=== PATIENT | male | born 1975 | race Caucasian/White ===

== ENCOUNTER → 2017-07-19 | Outpatient (CLI) | payer BC, OTHER ==
[~2017-07-19] MED LIST: DICY20TA10 PO; IBUP-1050 PO; OXYC-57 PO; SERT-234 PO; SERT50TA PO; TAMS0.4C38 PO
== END | disposition home or self-care (01) ==
LOC: C.LABSPEC 17:03
PROVIDERS: ATTEND Urology
DX: R31.0 Gross hematuria (principal); N45.1 Epididymitis; R30.0 Dysuria

== ENCOUNTER → 2017-08-15 | Outpatient (CLI) | payer BC, OTHER ==
[2017-08-15 15:38] LABS: BASO % 0.7 %; BASO ABS # 0.04 K/uL (0-0.2); COMPLETE YES; EOS % 4.7 %; IG% 0.3 %; LYMPH % 26.6 %; LYMPH ABS # 1.54 K/uL (1.2-3.4); MEAN CELL VOLUME 79.8 fL (80-100); MEAN CORPUSCULAR HEMOGLOBIN 27.8 pg (25-34); MEAN CORPUSCULAR HGB CONC 34.9 g/dl (32-36); MEAN PLATELET VOLUME 8.5 fL (7.4-10.4); MONO % 7.3 %; NEUT % 60.4 %; PLATELET COUNT 216 K/uL (130-400); RED BLOOD COUNT 5.39 M/uL (4.7-6.1); WHITE BLOOD COUNT 5.78 K/uL (4.8-10.8)
[2017-08-15 15:53] LABS: BLOOD UREA NITROGEN 15 mg/dl (7-18); BUN/CREATININE RATIO 18.2 (10-20); CARBON DIOXIDE 26 mmol/L (21-32); CHLORIDE 108 mmol/L (98-107); CREATININE 0.82 mg/dl (0.60-1.40); GLUCOSE 101 mg/dl (70-99); PHOSPHORUS 2.3 mg/dl (2.5-4.9); POTASSIUM 3.9 mmol/L (3.5-5.1); SODIUM 141 mmol/L (136-145)
[2017-08-15 15:56] LABS: URINE APPEARANCE CLEAR (CLEAR); URINE BILIRUBIN NEG (NEG); URINE COLOR YELLOW; URINE EPITHELIAL CELL AUTO 0-5 /lpf (0-5); URINE NITRITE NEG (NEG); URINE PH 5.5 (4.5-7.5); URINE SPECIFIC GRAVITY 1.025 (1.000-1.030); UROBILINOGEN NEG (NEG); ZZUR CULT IF INDIC CLEAN CATCH NO
[2017-08-15 16:01] LABS: MANUAL MICROSCOPIC REQUIRED? NO; REVIEW REQ? NO
[2017-08-15 16:05] LABS: URINE PROTIEN/CREAT RATIO 0.1 (0-0.2); URINE TOTAL PROTEIN 16.7 mg/dl (0-11.9)
== END | disposition home or self-care (01) ==
LOC: C.LAB1850 14:17
PROVIDERS: ATTEND Internal Medicine Nephrology
DX: R31.0 Gross hematuria (principal)

== ENCOUNTER → 2017-08-21 | Day surgery (SDC) | payer BC, OTHER ==
[2017-08-18 08:43] VITALS: BMI 37.0
[~2017-08-21] VITALS: Ht 180.3 cm; Wt 120.5 kg
[~2017-08-21] MED LIST changes: +ATROPINE SULFATE 0.1 MG/ML 5ML SYR IV PRN; +BUPIVACAINE 0.5 % 5 MG/1 ML MPF 30ML VIAL ONE; +CEFAZOLIN SOD 1 GM VIAL ONE; +DEXAMETHASONE SOD INJ 4 MG/ML VIAL ONE; +EpHEDrine SULFATE 50MG/5ML SYR ONE; +FENTANYL CITRATE INJ 50 MCG/1 ML 2 ML VIAL ONE; +GLYCOPYRROLATE INJ 0.2 MG/ML VIAL ONE; +HYDROmorphone INJ 1 MG/ML SYR ONE; +HYDROmorphone INJ 2 MG/ML SYR/VIAL IV PRN; +KETOROLAC TROMETHAMINE 30 MG/ML VIAL IV. PRN; +KETOROLAC TROMETHAMINE 30 MG/ML VIAL ONE; +LABETALOL HCL IV 5 MG/ML 20ML IV PRN; +LACTATED RINGER'S 1000ML 1,000 ML IV SCH; +LIDOCAINE HCL 2% 2 ML VIAL (20MG/ML) ONE; +MIDAZOLAM HCL 1 MG/ML 2ML VIAL ONE; +MoRPHine SULFATE 2 MG/ML CARP IV PRN; +NEOSTIGMINE METHYLSULFATE 5 MG/5 ML SYR ONE; +ONDANSETRON INJ 2 MG/ML 2 ML VIAL IV PRN; +ONDANSETRON INJ 2 MG/ML 2 ML VIAL ONE; +OXYCODONE/ACETAMINOPHEN 5-325 TAB PO PRN; +PATIENT'S ALLERGY INFO NEEDS ENTERED SCH; +PROPOFOL IV EMULSION 10 MG/ML 20 ML VIAL IV ONE; +ROCURONIUM BROMIDE 10 MG/ML 5 ML VIAL IV ONE
[2017-08-21 05:30] VITALS: BP 122/84; PULSE 68; TEMP 36.8; O2SAT 99; Ht 180.3 cm; Wt 120.5 kg
--- NOTE | 2017-08-21 07:09 | History & Physical Bridge Note ---
H&P Re-Evaluation Bridge Note: I have examined the patient, reviewed the History & Physical and in the interval since the performance of the History & Physical I have noted the following changes of clinical significance: No changes noted
--- NOTE | 2017-08-21 08:59 | Discharge Instructions ---
Discharge Instructions Date of Service Aug 21, 2017. Visit Reason for Visit: Bilateral Inguinal Hernia Discharge Discharge Diagnosis / Problem: laparoscopic inguinal hernia repairs Discharge Goals Goal(s): Decrease discomfort Activity Recommendations Activity Limitations: as noted below Lifting Limitations: no more than 10 pounds Shower/Bathe: no limitations (ok to shower) Driving or Machine Use: resume 3 days after discharge (when not having pain/ taking Percocet) Anesthesia . Post Anesthesia Instructions: If you have had General Anesthesia or IV Sedation: * Do not drive today. * Resume driving when surgeon permits. * Do not make important decisions or sign legal documents today. * Call surgeon for: 1. Temperature elevations greater than 101 degrees F. 2. Uncontrollable pain. 3. Excessive bleeding. 4. Persistent nausea and vomiting. 5. Medication intolerance (nausea, vomiting or rash). * For nausea and vomiting use only clear liquids such as: tea, soda, bouillon until nausea subsides, then gradually increase diet as tolerated. * If you have any concerns or questions, call your surgeon's office. If physician is unavailable and it is an emergency, call 911 or go to the nearest emergency room. . Instructions / Follow-Up Instructions / Follow-Up Dr. Gutierrez in 1-2 weeks as planned, call [phone] for any questions You may take ibuprofen 600 mg every 6 hours as needed in addition to Percocet Diet Recommendations Recommended Home Diet: no limitations Procedures Procedures Performed: Laparoscopic Bilateral Inguinal Hernia Repairs with Mesh Pending Studies Studies pending at discharge: no Medical Emergencies . Who to Call and When: Medical Emergencies: If at any time you feel your situation is an emergency, please call 911 immediately. . Non-Emergent Contact Non-Emergency issues call your: Surgeon Call Non-Emergent contact if: you have a fever, temperature is above 101.5, your pain is not controlled, you have any medication questions . . "Provider Documentation" section prepared by Rupesh Ramirez. .
--- NOTE | 2017-08-21 09:00 | [facility] Post Operative Brief Note ---
Immediate Operative Summary Operative Date Aug 21, 2017. Pre-Operative Diagnosis Bilateral Inguinal Hernias Post-Operative Diagnosis Bilateral Indirect Inguinal Hernias Procedure(s) Performed Laparoscopic Bilateral Inguinal Hernia Repairs with Mesh Surgeon Dr. Gutierrez [employer] Surgeon(s) SELAM Wang Estimated Blood Loss 4 ml Findings left indirect inguinal hernia, right indirect inguinal hernia with cord lipoma, progrip mesh placed bilaterally Specimens none per surgeon Drains None Anesthesia GETA Complication(s) None Disposition Recovery Room / PACU
--- NOTE | 2017-08-21 09:08 | [facility] Operative Report ---
Operative Report Operative Date Aug 21, 2017. Pre-Operative Diagnosis Bilateral Inguinal Hernias Post-Operative Diagnosis Bilateral indirected inguinal hernias Procedure(s) Performed Laparoscopic bilateral inguinal hernia repair Surgeon Dr. Gutierrez Helpdesk Analyst Surgeon(s) SELAM Wang Estimated Blood Loss 4 ml Findings left indirect inguinal hernia, right indirect inguinal hernia with cord lipoma, progrip mesh placed bilaterally Specimens none per surgeon Drains None Anesthesia GETA Complication(s) None Disposition Recovery Room / PACU Indications 42 year old male with chronic groin pain and bilateral inguinal hernias seen on CT, plan for laparoscopic bilateral inguinal hernia repairs. The risks of the procedure were discussed, all questions were answered, and the patient agreed to proceed with surgery as planned. Description of Procedure The patient was properly identified, consented, and taken to the operating room where he was placed in the supine position. General endotracheal anesthesia was induced. SCDs and a safety belt were placed. A villareal catheter was placed. Preoperative antibiotics were administered. The patient's groins and abdomen were prepped and draped in the standard sterile fashion. Surgical timeout was performed and all parties were in agreement that this was the correct patient and procedure to be performed and we continued as planned. A transverse infraumbilical incision was made to the left of midline with electrocautery and deepened down to the fascia with blunt dissection. A transverse incision was made in the anterior rectus sheath on the left. The rectus muscle was pulled laterally exposing the posterior rectus sheath. A [place] was used to bluntly dissect the preperitoneal space down to the pubic symphysis. This was then replaced with a laparoscopic preperitoneal dissection balloon, which was inflated under direct visualization and held in place for approximately 30 seconds. This was then removed and the preperitoneal space was insufflated with carbon dioxide which the patient tolerated without incident. Two 5 mm ports were then placed in the midline. Dissection started on the right, beginning laterally at the anterior superior iliac spine. Jose's ligament was then dissected medially. The cord structures were circumferentially dissected. A small indirect hernia and cord lipoma were noted. It was dissected away from the cord structures. The contralateral side was then dissected in a similar manner, and a small indirect hernia was noted. Progrip mesh was placed on the bilaterally and covered the direct, indirect, and femoral spaces. The mesh was held in place, the ports were removed, and the space was allowed to collapse. The anterior rectus sheath fascia was closed with 3-0 Vicryl suture. The skin of all port sites were closed with 4-0 Monocryl subcuticular suture, and Dermabond was placed over the incisions. The patient was extubated in the operating room and taken to the PACU for recovery without apparent incident. Any air in the scrotum was reduced, and the testicles were confirmed to be in the scrotum. All sponge, instrument, and needle counts were correct at the conclusion of the procedure. The patient tolerated the procedure well. I attest to the content of the Intraoperative Record and any orders documented therein. Any exceptions are noted below.
[2017-08-21 10:10] VITALS: BP 106/69; PULSE 56; TEMP 36.9; O2SAT 92
--- NOTE | 2017-08-21 10:18 | Anesthesiology Progress Note ---
Anesthesia Post Op Note Date & Time Aug 21, 2017 at 10:16 Vital Signs Vital Signs Past 12 Hours Date Time Temp Pulse Resp B/P (MAP) Pulse Ox O2 Delivery O2 Flow Rate FiO2 08/21/17 10:00 36.4 60 15 104/73 92 Room Air 08/21/17 09:50 57 14 116/70 91 Room Air 08/21/17 09:40 60 13 109/76 92 Room Air 08/21/17 09:30 62 13 119/77 93 Room Air 08/21/17 09:20 65 14 119/77 97 Oxymask 10 08/21/17 09:10 85 24 137/89 97 Oxymask 10 08/21/17 09:00 36.4 99 16 149/90 100 Mask 10 08/21/17 05:30 36.8 68 20 122/84 (97) 99 Room Air Notes Mental Status: alert / awake / arousable, participated in evaluation Pt Amnestic to Procedure: Yes Nausea / Vomiting: adequately controlled Pain: adequately controlled Airway Patency, RR, SpO2: stable & adequate BP & HR: stable & adequate Hydration State: stable & adequate Anesthetic Complications: no major complications apparent
[2017-08-21 10:40] VITALS: BP 105/66; PULSE 55; O2SAT 93
[2017-08-21 11:10] VITALS: BP 103/69; PULSE 59; TEMP 36.6; O2SAT 93
== END | disposition home or self-care (01) ==
LOC: C.ACU 05:01
PROVIDERS: ATTEND Surgery
DX: K40.20 Bilateral inguinal hernia, without obstruction or gangrene, not specified as recurrent (principal); G47.30 Sleep apnea, unspecified; F32.9 Major depressive disorder, single episode, unspecified; Z90.89 Acquired absence of other organs; Z98.890 Other specified postprocedural states; Z82.49 Family history of ischemic heart disease and other diseases of the circulatory system

== ENCOUNTER → 2017-08-25 | Outpatient (CLI) | payer BC, OTHER ==
[~2017-08-25] MED LIST changes: -ATROPINE SULFATE 0.1 MG/ML 5ML SYR IV PRN; -BUPIVACAINE 0.5 % 5 MG/1 ML MPF 30ML VIAL ONE; -CEFAZOLIN SOD 1 GM VIAL ONE; -DEXAMETHASONE SOD INJ 4 MG/ML VIAL ONE; -EpHEDrine SULFATE 50MG/5ML SYR ONE; -FENTANYL CITRATE INJ 50 MCG/1 ML 2 ML VIAL ONE; -GLYCOPYRROLATE INJ 0.2 MG/ML VIAL ONE; -HYDROmorphone INJ 1 MG/ML SYR ONE; -HYDROmorphone INJ 2 MG/ML SYR/VIAL IV PRN; -KETOROLAC TROMETHAMINE 30 MG/ML VIAL IV. PRN; -KETOROLAC TROMETHAMINE 30 MG/ML VIAL ONE; -LABETALOL HCL IV 5 MG/ML 20ML IV PRN; -LACTATED RINGER'S 1000ML 1,000 ML IV SCH; -LIDOCAINE HCL 2% 2 ML VIAL (20MG/ML) ONE; -MIDAZOLAM HCL 1 MG/ML 2ML VIAL ONE; -MoRPHine SULFATE 2 MG/ML CARP IV PRN; -NEOSTIGMINE METHYLSULFATE 5 MG/5 ML SYR ONE; -ONDANSETRON INJ 2 MG/ML 2 ML VIAL IV PRN; -ONDANSETRON INJ 2 MG/ML 2 ML VIAL ONE; -OXYCODONE/ACETAMINOPHEN 5-325 TAB PO PRN; -PATIENT'S ALLERGY INFO NEEDS ENTERED SCH; -PROPOFOL IV EMULSION 10 MG/ML 20 ML VIAL IV ONE; -ROCURONIUM BROMIDE 10 MG/ML 5 ML VIAL IV ONE
--- NOTE | 2017-08-25 12:50 | DIAGNOSTIC IMAGING REPORT ---
(TESTICULAR) SCROTUM-CONT CLINICAL HISTORY: 42 years-old Male with HERNIA. Acute scrotal pain status post bilateral inguinal hernia repair 4 days prior COMPARISON STUDY: CT abdomen and pelvis 07/28/2017 TECHNIQUE: Real-time, grayscale, and color Doppler sonography of the testes and scrotum is performed. Images are reviewed in the transverse and longitudinal planes. FINDINGS: RIGHT HEMISCROTUM: The right testis measures 4.4 x 2.7 x 3.3 cm and the parenchyma appears within normal limits, however there is mildly increased vascularity of the right testicle compared to the left. No intratesticular mass is seen. Normal-appearing arterial inflow is present within the right testicle. The right epididymal head is unremarkable. There is heterogeneity and enlargement of the epididymal tail and spermatic cord region with increased vascularity. There is a small mildly complex right-sided hydrocele. LEFT HEMISCROTUM: The left testis measures 4.5 x 2.2 x 3.3 cm and the parenchyma appears unremarkable. No intratesticular mass is seen. Normal-appearing arterial inflow is present within the left testicle. The left epididymal head appears normal. No varicocele or hydrocele is identified. IMPRESSION: 1. Findings suggest acute right-sided epididymoorchitis with small mildly complex right-sided hydrocele. 2. No evidence of testicular torsion or mass. The above report was generated using voice recognition software. It may contain grammatical, syntax or spelling errors. Electronically signed by: Ady Heath M.D. 08/25/2017 12:48 PM Dictated Date/Time: 08/25/2017 12:44 PM
== END | disposition home or self-care (01) ==
LOC: C.ULTRBC 11:53
PROVIDERS: ATTEND Surgery
DX: K40.20 Bilateral inguinal hernia, without obstruction or gangrene, not specified as recurrent (principal); N43.3 Hydrocele, unspecified